=== PATIENT | female | born 1970 | race African-American/Black ===

== ENCOUNTER 2022-07-19 10:12 | Emergency (ER) | payer OTHER ==
[~2022-07-19] VITALS: Ht 162.6 cm; Wt 210.0 kg
[2022-07-19 11:00] VITALS: BP 160/92
[2022-07-19] MEDS ORDERED: NAP500T PO (13:25)
[2022-07-19] MEDS ORDERED: CYCL-837 PO (13:25)
== END 2022-07-19 14:54 | disposition home or self-care (01) ==
LOC: EDBD 10:12 → ER 10:12
DX: S39.012A Strain of muscle, fascia and tendon of lower back, initial encounter (principal); I10 Essential (primary) hypertension; V43.62XA Car passenger injured in collision with other type car in traffic accident, initial encounter; Y93.89 Activity, other specified; Y92.410 Unspecified street and highway as the place of occurrence of the external cause; Y99.8 Other external cause status
CPT/HCPCS: 72100